=== PATIENT | male | born 1965 | race Caucasian/White ===

== ENCOUNTER 2017-10-02 12:05 | Day surgery (SDC) | payer OTHER ==
[2017-09-30 10:37] VITALS: BMI 32.8
--- NOTE | 2017-10-02 07:11 | P.GSHP ---
History of Present Illness H&P Date: 10/02/17 CHIEF COMPLAINT: Colon screen HISTORY OF PRESENT ILLNESS: The patient is a 52-year-old male who presents for colon screen. Lower endoscopy was offered for further evaluation and management. PAST MEDICAL HISTORY: Please see list. PAST SURGICAL HISTORY: Please see list. MEDICATIONS: Please see list. ALLERGIES: Please see list. SOCIAL HISTORY: No illicit drug use FAMILY HISTORY: No reports of Crohn disease or ulcerative colitis. REVIEW OF ORGAN SYSTEMS: CONSTITUTIONAL: No reports of fevers or chills. PHYSICAL EXAM: VITAL SIGNS: Stable GENERAL: Well-developed pleasant in no acute distress. HEENT: No scleral icterus. Extraocular movements grossly intact. Moist buccal mucosa. NECK: Supple without lymphadenopathy. CHEST: Unlabored respirations. Equal bilateral excursions. CARDIOVASCULAR: Regular rate and rhythm. Distal 2+ pulses. ABDOMEN: Soft, nontender, nondistended. MUSCULOSKELETAL: No clubbing, cyanosis, or edema. ASSESSMENT: 1. Colon screen. PLAN: 1. Recommend proceeding with a lower endoscopy Past Medical History Past Medical History: No Reported History History of Any Multi-Drug Resistant Organisms: None Reported Past Surgical History: Heart Catheterization With Stent, Hernia Repair Additional Past Surgical History / Comment(s): HEART CATH -2 STENTS 2000 AND 1 STENT 2003. VASECTOMY Past Anesthesia/Blood Transfusion Reactions: No Reported Reaction Date of Last Stent Placement:: 2000,2003 Smoking Status: Never smoker - Past Family History Mother Family Medical History: Cancer Medications and Allergies Home Medications Medication Instructions Recorded Confirmed Type No Known Home Medications [No 09/30/17 09/30/17 History Known Home Medications] Allergies Allergy/AdvReac Type Severity Reaction Status Date / Time No Known Allergies Allergy Verified 09/30/17 10:33
[~2017-10-02 12:05] MED LIST: LACTATED RINGERS 1,000 ML IV SCH
[2017-10-02 12:23] VITALS: RESP 16; TEMP 98.5
[2017-10-02] MEDS ORDERED: LIDOCAINE 1% 20 ML VIAL (10MG/ML) FOR IV START INTRADERMA ONE (12:27)
[2017-10-02] MEDS ORDERED: PROPOFOL 10 MG/ML 20 ML VIAL IV ONE (12:43)
--- NOTE | 2017-10-02 13:09 | P.PCN ---
Date of Procedure: 10/02/17 Description of Procedure: PREOPERATIVE DIAGNOSIS: Colonoscopy screening. POSTOPERATIVE DIAGNOSIS: Colonoscopy screening. Diverticulosis, scattered, severe at sigmoid Descending colon tubular adenoma OPERATION: Colonoscopy to the ileocecal valve and appendiceal orifice. Colonoscopy with snare polypectomy SURGEON: Marixa Keene MD. ANESTHESIA: MAC. INDICATIONS: The patient is a 52-year-old male who presents for his first colonoscopy screening. Benefits and risks were described and informed consent was obtained. DESCRIPTION OF PROCEDURE: The patient had undergone Gatorade, MiraLAX and Dulcolax prep. He had been brought into the operating room and laid in the left lateral decubitus position. After adequate intravenous sedation, the rectum was examined with 2% lidocaine jelly. No external hemorrhoids were encountered. The prostate was smooth and without abnormality. The rectal tone was within normal limits. No lesions were palpated in the rectal vault. An Olympus colonoscope was advanced until the ileocecal valve and appendiceal orifice were clearly viewed. The prep was fair with visualization of the mucosal folds. The scope was removed with visualization of each mucosal fold. Sigmoid diverticulosis was encountered. A tubular adenoma of 6 mm with snare polypectomy to completion at the descending colon, 30 cm from anal verge. No evidence of focal colitis was found. Retroflexion of the scope demonstrated no grade 1 internal hemorrhoids. The colon was desufflated. The patient had tolerated the procedure well. Withdrawal time was over 6 minutes. FINDINGS: No internal hemorrhoids. No external prolapsed hemorrhoids. No arteriovenous malformations. A tubular adenoma of 6 mm with snare polypectomy to completion at the descending colon, 30 cm from anal verge. No focal colitis. Severe sigmoid diverticulosis RECOMMENDATIONS: Repeat lower endoscopy in 5 years, 2022 Plan - Discharge Summary New Discharge Prescriptions: No Action No Known Home Medications [No Known Home Medications] Discharge Medication List No Known Home Medications [No Known Home Medications] 09/30/17 [History]
[2017-10-02 13:30] VITALS: BP 111/74; PULSE 78
== END 2017-10-02 13:40 | disposition home or self-care (01) ==
LOC: ORWHC2ENDO 12:05
PROVIDERS: ATTEND Surgery Plastic and Reconstructive Surgery
DX: Z12.11 Encounter for screening for malignant neoplasm of colon (principal); D12.4 Benign neoplasm of descending colon; K57.30 Diverticulosis of large intestine without perforation or abscess without bleeding; Z95.5 Presence of coronary angioplasty implant and graft
CPT/HCPCS: 88305; 45385; J2704

== ENCOUNTER → 2021-12-05 | Day surgery (SDC) | payer BC, OTHER ==
[2021-12-04 09:33] VITALS: BMI 31.6
[~2021-12-05] MED LIST changes: +IOPAMIDOL CONTRAST (ORAL USE) VIAL PO PRN; +LIDOCAINE 1% (10MG/ML) FOR IV START INTRADERMA ONE; +LIDOCAINE 2% INJ 20 MG/ML (2 ML VIAL) ONE; +PROPOFOL 10 MG/ML 20 ML VIAL IV ONE
--- NOTE | 2021-12-05 07:25 | P.GSHP ---
History of Present Illness H&P Date: 12/05/21 CHIEF COMPLAINT: Colon screen HISTORY OF PRESENT ILLNESS: The patient is a 56-year-old male who presents for colon screen. Lower endoscopy was offered for further evaluation and management. PAST MEDICAL HISTORY: Please see list. PAST SURGICAL HISTORY: Please see list. MEDICATIONS: Please see list. ALLERGIES: Please see list. SOCIAL HISTORY: No illicit drug use FAMILY HISTORY: No reports of Crohn disease or ulcerative colitis. REVIEW OF ORGAN SYSTEMS: CONSTITUTIONAL: No reports of fevers or chills. PHYSICAL EXAM: VITAL SIGNS: Stable GENERAL: Well-developed pleasant in no acute distress. HEENT: No scleral icterus. Extraocular movements grossly intact. Moist buccal mucosa. NECK: Supple without lymphadenopathy. CHEST: Unlabored respirations. Equal bilateral excursions. CARDIOVASCULAR: Regular rate and rhythm. Distal 2+ pulses. ABDOMEN: Soft, nontender, nondistended. MUSCULOSKELETAL: No clubbing, cyanosis, or edema. ASSESSMENT: 1. Colon screen. PLAN: 1. Recommend proceeding with a lower endoscopy Past Medical History Past Medical History: Hyperlipidemia, Hypertension, Myocardial Infarction ([place]) Additional Past Medical History / Comment(s): LOW IRON LEVELS Last Myocardial Infarction Date:: 2000 History of Any Multi-Drug Resistant Organisms: None Reported Past Surgical History: Heart Catheterization With Stent, Hernia Repair Additional Past Surgical History / Comment(s): HEART CATH -2 STENTS 2000 AND 1 STENT 2003. VASECTOMY. COLONOSCOPY Past Anesthesia/Blood Transfusion Reactions: No Reported Reaction Date of Last Stent Placement:: 2000,2003 Smoking Status: Never smoker - Past Family History Mother Family Medical History: Cancer Medications and Allergies Home Medications Medication Instructions Recorded Confirmed Type Atorvastatin [Lipitor] 80 mg PO DAILY 12/04/21 12/04/21 History Citalopram Hydrobromide 20 mg PO DAILY 12/04/21 12/04/21 History [Citalopram HBr] Metoprolol Succinate (ER) [Toprol 25 mg PO DAILY 12/04/21 12/04/21 History Xl] Allergies Allergy/AdvReac Type Severity Reaction Status Date / Time No Known Allergies Allergy Verified 12/04/21 09:27
[2021-12-05 09:05] VITALS: RESP 16; TEMP 97.3
[2021-12-05 10:42] LABS: Basophils % (A) 0 %; Eosinophils # (A) 0.2 k/uL (0-0.7); Eosinophils % (A) 3 %; HCT 40.2 % (39.0-53.0); HGB 12.5 gm/dL (13.0-17.5); Lymphocytes # (A) 0.8 k/uL (1.0-4.8); Lymphocytes % (A) 14 %; MCH 28.1 pg (25.0-35.0); MCV 90.5 fL (80.0-100.0); Mean Platelet Volume 7.6; Monocytes # (A) 0.3 k/uL (0-1.0); Monocytes % (A) 5 %; Neutrophils # (A) 4.1 k/uL (1.3-7.7); Neutrophils % (A) 76 %; Platelet Count 247 k/uL (150-450); RBC 4.44 m/uL (4.30-5.90); RDW 14.1 % (11.5-15.5); WBC 5.5 k/uL (3.8-10.6)
[2021-12-05 10:47] VITALS: BP 122/79; PULSE 71
[2021-12-05 11:02] LABS: ALT 13 U/L (4-49); AST 23 U/L (17-59); African American GFR (CKD) >90 (>60 ml/min/1.73 sqM); Albumin 3.3 g/dL (3.5-5.0); Alkaline Phosphatase 88 U/L (38-126); Anion Gap 5 mmol/L; Blood Urea Nitrogen 10 mg/dL (9-20); Calcium 8.6 mg/dL (8.4-10.2); Carbon Dioxide 25 mmol/L (22-30); Chloride 107 mmol/L (98-107); Glucose 94 mg/dL (74-99); Non-African American GFR(CKD) >90 (>60 ml/min/1.73 sqM); Potassium 4.5 mmol/L (3.5-5.1); Sodium 137 mmol/L (137-145); Total Bilirubin 0.4 mg/dL (0.2-1.3); Total Protein 5.8 g/dL (6.3-8.2)
--- NOTE | 2021-12-05 13:34 | CT ---
EXAMINATION TYPE: CT abdomen pelvis w con DATE OF EXAM: 12/05/2021 COMPARISON: None INDICATION: abdominal pain DLP: 1866.3 mGycm, Automated exposure control for dose reduction was used. CONTRAST: 65cc mL of Isovue 300. Study performed with Oral Contrast TECHNIQUE: Axial images were obtained from above the diaphragm to the pubic rami in the axial plane a t 5 mm thick sections. Reconstructed images are reviewed on the computer in the coronal plane. FINDINGS: Limited CT sections are obtained the lung bases. The lung bases are clear. CT ABDOMEN: Liver: Multiple rounded well-circumscribed hypodensities are scattered within the liver likely on the basis of hepatic cysts. Spleen: Normal Pancreas: Normal Adrenal glands: The adrenal glands are normal. Gallbladder: Gallstones present near the neck of the gallbladder. No pericholecystic fluid is evident . Kidneys: No masses are evident. No hydronephrosis is present. Cortical renal cyst is present in the mid lateral left kidney. Tiny cortical renal cysts superior pole left kidney medial upper pole rosita l cyst is present on the left. Aorta: Normal Inferior vena cava: Normal. CT PELVIS: There is diffuse thickened cecum with some mild inflammatory change adjacent. Infection and neoplasm should be considered. Additional workup is recommended. Diverticulosis without acute diverticulitis p resent within the sigmoid colon. There are loops of bowel which are incompletely distended or lack or al contrast limiting their evaluation. Appendix: Normal as visualized. Contrast within the appendix. Urinary bladder: Normal. Genitourinary structures: Prostate appears normal. Osseous structures: No suspicious lytic or sclerotic lesions. IMPRESSIONS: 1. Thickened cecum with some mild adjacent inflammatory change. Correlate for underlying neoplasm. I nfection should be considered within the differential. 2. Multiple benign-appearing hepatic cysts. 3. Cholelithiasis. 4. Small left renal cortical cysts.
[2021-12-05 15:00] LABS: Carcinoembryonic Antigen 2.9 ng/mL (0.0-4.9)
[2021-12-05 15:35] LABS: Alpha Fetoprotein, Tumor Mkr <1.82 ng/mL (0.00-7.90)
--- NOTE | 2021-12-11 15:42 | P.PCN ---
Date of Procedure: 12/05/21 Description of Procedure: PREOPERATIVE DIAGNOSIS: Personal history of colon polyps POSTOPERATIVE DIAGNOSIS: Tubular adenoma transverse colon Large cecal ulcerative neoplasm malignant potential Internal hemorrhoids, grade 2 Sigmoid diverticulosis/diverticulitis OPERATION: Colonoscopy to the ileocecal valve and appendiceal orifice, cecum Colonoscopy with hot snare polypectomy Colonoscopy with injection of Kathe ink, 5 mL, cecum SURGEON: Marixa Keene MD. ANESTHESIA: MAC. INDICATIONS: The patient is an 56-year-old male who presents personal history of colon polyps. Last colonoscopy 5 years. Benefits and risks were described and informed consent was obtained. DESCRIPTION OF PROCEDURE: The patient had undergone Sutab prep. The patient had been brought into the operating room and laid in the left lateral decubitus position. After adequate intravenous sedation, the rectum was examined with 2% lidocaine jelly. The prostate was unremarkable. External hemorrhoids were encountered. The rectal tone was within normal limits. No lesions were palpated in the rectal vault. An Olympus colonoscope was advanced until the cecum, ileocecal valve and appendiceal orifice were clearly viewed. The prep was excellent. Moderate to severe sigmoid diverticulosis with resolved diverticulitis was encountered at 30 cm from anal verge. Colonic polyps were found and removed. At the cecum/ascending colon, a large circumferential easily friable polyploid neoplastic process was identified involving over 5 cm in size. Multiple snare biopsies were obtained including injection of Kathe ink distal to the lesion. Retroflexion of the scope demonstrated grade 2 internal hemorrhoids without active bleeding or inflammation. The colon was desufflated. The patient had tolerated the procedure well. Withdrawal time was over 6 minutes. FINDINGS: Aronchick preparation quality scale 1 (1-5) Internal hemorrhoids, grade 2 External hemorrhoids, grade 2. No arteriovenous malformations. Sigmoid diverticulosis with resolved diverticulitis and edema, 30 cm from the anal verge At the cecum/ascending colon, a large unresectable by endoscopy circumferential easily friable polyploid neoplastic process was identified involving over 5 cm in size. -Multiple snare biopsies were obtained including injection of Kathe ink distal to the lesion. Removal of 1 polyps: - Snare polypectomy 50 cm from the anal verge, 8 mm flat villous adenoma polyp, descending colon/splenic flexure No focal colitis. RECOMMENDATIONS: 1. Unresectable cecal malignancy requiring surgical intervention 2. CBC, CMP, EKG for surgical intervention 3. Immediate CT of the abdomen and pelvis for malignancy metastatic Plan - Discharge Summary Discharge Rx Participant: No New Discharge Prescriptions: No Action Metoprolol Succinate (ER) [Toprol Xl] 25 mg PO DAILY Atorvastatin [Lipitor] 80 mg PO DAILY Citalopram Hydrobromide [Citalopram HBr] 20 mg PO DAILY Discharge Medication List Atorvastatin [Lipitor] 80 mg PO DAILY 12/04/21 [History] Citalopram Hydrobromide [Citalopram HBr] 20 mg PO DAILY 12/04/21 [History] Metoprolol Succinate (ER) [Toprol Xl] 25 mg PO DAILY 12/04/21 [History] Follow up Appointment(s)/Referral(s): Monroe Godfrey DO [STAFF PHYSICIAN] - 1 Week
== END | disposition home or self-care (01) ==
LOC: ORWHC2ENDO 08:27
PROVIDERS: ATTEND Surgery Plastic and Reconstructive Surgery
DX: Z12.11 Encounter for screening for malignant neoplasm of colon (principal); C18.0 Malignant neoplasm of cecum; D12.0 Benign neoplasm of cecum; D17.79 Benign lipomatous neoplasm of other sites; K57.30 Diverticulosis of large intestine without perforation or abscess without bleeding; K64.1 Second degree hemorrhoids; K64.4 Residual hemorrhoidal skin tags; Z86.010 Personal history of colon polyps; E78.5 Hyperlipidemia, unspecified; I10 Essential (primary) hypertension; F41.9 Anxiety disorder, unspecified; I25.2 Old myocardial infarction; E83.10 Disorder of iron metabolism, unspecified; Z95.5 Presence of coronary angioplasty implant and graft; Z98.52 Vasectomy status; Z98.890 Other specified postprocedural states; Z80.9 Family history of malignant neoplasm, unspecified; Z79.899 Other long term (current) drug therapy
CPT/HCPCS: 88305; 80053; 82378; 85025; 82105; 74177; 45385; 45381; J2704; Q9967; J2001

== ENCOUNTER → 2022-01-03 | Outpatient (CLI) | payer BC ==
[2022-01-03 18:12] LABS: HCT 40.3 % (39.6-50.0); HGB 12.8 g/dL (13.0-17.0); MCH 28.6 pg (27.0-32.0); MCHC 31.8 g/dL (32.0-37.0); MCV 90.2 fL (80.0-97.0); Mean Platelet Volume 10.7 fL (9.5-12.2); NRBC Per 100 WBC 0 /100 WBCS (0.0-0.0); Platelet Count 278 X 10*3/uL (140-440); RBC 4.47 X 10*6/uL (4.40-5.60); RDW 14.1 % (11.5-14.5); WBC 7.53 X 10*3/uL (4.50-10.00)
[2022-01-03 18:22] LABS: African American GFR (CKD) 103.4 (60.0-200.0); Albumin 3.7 g/dL (3.8-4.9); Albumin/Globulin Ratio 1.29 (1.60-3.17); Anion Gap 7.8 mmol/L (10.00-18.00); BUN/Creat Ratio 20.58 Ratio (12.00-20.00); Blood Urea Nitrogen 19.3 mg/dL (9.0-27.0); Calcium 9.1 mg/dL (8.7-10.3); Carbon Dioxide 26.2 mmol/L (20.0-27.5); Globulin 2.9 g/dL (1.6-3.3); Non-African American GFR(CKD) 89.2 (60.0-200.0); Potassium 4.8 mmol/L (3.5-5.5); Total Bilirubin 0.2 mg/dL (0.30-1.20); Total Protein 6.6 g/dL (6.2-8.2)
== END | disposition home or self-care (01) ==
LOC: LABPAT 13:12
PROVIDERS: ATTEND Surgery Plastic and Reconstructive Surgery
DX: Z01.818 Encounter for other preprocedural examination (principal)
CPT/HCPCS: 36415; 80053; 85027

== ENCOUNTER 2022-01-09 06:19 | Inpatient (IN) | payer BC, OTHER ==
[2022-01-07 09:20] VITALS: BMI 32.5
--- NOTE | 2022-01-09 04:17 | P.GSHP ---
History of Present Illness H&P Date: 01/09/22 CHIEF COMPLAINT: Colon cancer of the ascending colon HISTORY OF PRESENT ILLNESS: The patient is a 56 year old male who presented with anemia including recent colonoscopy 1 month ago with new finding of mass of the ascending colon. Pathology returned adenocarcinoma of the colon. Patient underwent extensive cardiac risk assessment, metastatic workup. Patient presents for surgical resection including endoscopic marking of his tumor. PAST MEDICAL HISTORY: See list and reviewed PAST SURGICAL HISTORY: See list and reviewed MEDICATIONS: See list and reviewed ALLERGIES: See list and reviewed SOCIAL HISTORY: See list and reviewed FAMILY HISTORY: See list and reviewed REVIEW OF ORGAN SYSTEMS: CONSTITUTIONAL: No fevers or chills. EYES: Denies any trouble with vision. Wears glasses. HEENT: No difficulties with hearing. No nosebleeds. No difficulty swallowing. RESPIRATORY: Denies pneumonia. Denies any troubles with breathing or dyspnea on exertion. CARDIOVASCULAR: Denies any chest pain, palpitations, or recent heart attacks. Had a recent cardiac risk assessment and stress test in the last 3 weeks. GASTROINTESTINAL: Denies fatty food intolerance. Denies change in bowel habits and gas bloat. GENITOURINARY: Denies any blood in urine or increased urinary frequency. NEUROLOGICAL: Denies any numbness or tingling along the distal extremities. No seizure disorders or headaches. MUSCULOSKELETAL: Has occassional back pain, stiffness or joint arthritis. SKIN: No current skin cancer. No rash. PSYCHIATRIC: Denies current depression or suicidal thoughts. ENDOCRINE: Denies current thyroid disorders. Denies any blood sugar glucose intolerance. HEME/LYMPHATIC: Denies any lumps and bumps around the neck. No recent deep venous thrombosis. ALLERGY/IMMUNOLOGY: No immunoglobulin therapy. No immune deficiencies. BREAST: Denies current breast lumps, pain or nipple discharge. PHYSICAL EXAM: VITALS: Reviewed CONSTITUTIONAL: Well developed and in no acute distress. EYES: Conjuctivae without sclera icterus. Extraocular movements grossly intact. HEAD, EARS, NOSE, THROAT: Moist buccal mucosa. Head is atraumatic, normocephalic. Hears conversational speech. No nasal drainage. NECK: Supple. No JV distention. No thyroidomegaly. RESPIRATORY: Non-labored respirations and equal bilateral excursions. No gross wheezes. CARDIOVASCULAR: Palpable 2+ radial pulses. ABDOMEN: Obese, nontender. LYMPH: No neck lymphadenopathy. MUSCULOSKELETAL: No clubbing cyanosis. SKIN: Warm and well perfused with good skin turgor. NEUROLOGIC: Cranial nerves II through XII grossly intact. No focal or lateralizing signs. PSYCH: Appropriate affect. Alert and oriented to person, place and time. Displays appropriate insight. CLINCAL LABS: Reviewed. Hemoglobin low 12.8. Tumor markers for colon cancer negative. IMAGING: Independently reviewed CT of the abdomen and pelvis demonstrates no lymphadenopathy. Abnormality and growth of the cecum identified extending into the ascending colon. This is my independent interpretation. RADIOLOGY: Report reviewed RECORDS: previous old records reviewed ASSESSMENT: 1. Ascending colon cancer PLAN: 1. Colonoscopy with endoscopic marking described for minimal invasive colon resection. 2. Robotic extended right hemicolectomy described. 3. Inpatient hospitalization over 2 nights described 4. Colon enhanced recovery protocol initiated 5. Patient's elevated risk for complications with obesity, hypertensive heart disease, and comorbidities. Past Medical History Past Medical History: Cancer, Hyperlipidemia, Hypertension, Myocardial Infarction ([place]) Additional Past Medical History / Comment(s): Current colon cancer. LOW IRON LEVELS. Last Myocardial Infarction Date:: 2000 History of Any Multi-Drug Resistant Organisms: None Reported Past Surgical History: Heart Catheterization With Stent, Hernia Repair Additional Past Surgical History / Comment(s): HEART CATH -2 STENTS 2000 AND 1 STENT 2003, VASECTOMY, COLONOSCOPY. Past Anesthesia/Blood Transfusion Reactions: No Reported Reaction Date of Last Stent Placement:: 2000,2003 Past Psychological History: Anxiety Smoking Status: Never smoker Past Alcohol Use History: Occasional Past Drug Use History: None Reported - Past Family History Mother Family Medical History: Cancer Medications and Allergies Home Medications Medication Instructions Recorded Confirmed Type Atorvastatin [Lipitor] 80 mg PO QAM 12/04/21 01/07/22 History Citalopram Hydrobromide 20 mg PO QAM 12/04/21 01/07/22 History [Citalopram HBr] Metoprolol Succinate (ER) [Toprol 25 mg PO QAM 12/04/21 01/07/22 History XL] Aspirin [Children's Aspirin] 81 mg PO DAILY 01/07/22 01/07/22 History Multivit with Calcium,Iron,Min 1 each PO DAILY 01/07/22 01/07/22 History [Women's Multivitamin] Allergies Allergy/AdvReac Type Severity Reaction Status Date / Time No Known Allergies Allergy Verified 01/07/22 09:22
[~2022-01-09 06:19] MED LIST changes: +Antibiotics per Pharmacy 1 EACH MISC MISCELLANE PRN; -IOPAMIDOL CONTRAST (ORAL USE) VIAL PO PRN; -LACTATED RINGERS 1,000 ML IV SCH; -LIDOCAINE 1% (10MG/ML) FOR IV START INTRADERMA ONE; +LIDOCAINE 1% (10MG/ML) FOR IV START INTRADERMA PRN; -LIDOCAINE 2% INJ 20 MG/ML (2 ML VIAL) ONE; -PROPOFOL 10 MG/ML 20 ML VIAL IV ONE
[2022-01-09] MEDS ORDERED: HEPARIN SODIUM,PORCINE/PF 5,000 UNIT/0.5 ML SYRINGE SQ PRN (07:00)
[2022-01-09] MEDS: LACTATED RINGERS 1,000 ML IV SCH (07:02)
[2022-01-09] MEDS ORDERED: PROPOFOL 10 MG/ML 20 ML VIAL IV ONE (07:05)
[2022-01-09] MEDS ORDERED: SODIUM CHLORIDE 0.9% 1,000 ML IV ONE (07:24)
--- NOTE | 2022-01-09 07:29 | P.PCN ---
Date of Procedure: 01/09/22 Description of Procedure: PREOPERATIVE DIAGNOSIS: Colon cancer of the cecum POSTOPERATIVE DIAGNOSIS: Colon cancer of the cecum Tubular adenoma hepatic flexure Moderate to severe sigmoid diverticulosis OPERATION: Colonoscopy to the ileocecal valve and appendiceal orifice, cecum Colonoscopy with hot snare polypectomy Colonoscopy with injection of Kathe ink, 5 mL, cecum SURGEON: Marixa Keene MD. ANESTHESIA: MAC. INDICATIONS: The patient is an 56-year-old male who presents a personal history of colon cancer. He presents here for endoscopic tattoo for surgical resection. Benefits and risks were described and informed consent was obtained. DESCRIPTION OF PROCEDURE: The patient had undergone Sutab prep. The patient had been brought into the operating room and laid in the left lateral decubitus position. After adequate intravenous sedation, the rectum was examined with 2% lidocaine jelly. The prostate was unremarkable. External hemorrhoids were encountered. The rectal tone was within normal limits. No lesions were palpated in the rectal vault. An Olympus colonoscope was advanced until the cecum, ileocecal valve and appendiceal orifice were clearly viewed. The prep was excellent. Sigmoid diverticulosis moderate to severe was encountered. Colonic polyps were found and removed. Large fungating easily friable cancer circumferential involving the entire cecum was found. Multiple tissues. Throughout the colon. No evidence of focal colitis was found. Retroflexion of the scope demonstrated grade 2 internal hemorrhoids without active bleeding or inflammation. The colon was desufflated. The patient had tolerated the procedure well. Withdrawal time was over 6 minutes. FINDINGS: Aronchick preparation quality scale 1 (1-5) Internal hemorrhoids, grade 2 External hemorrhoids, grade 2. No arteriovenous malformations. Sigmoid diverticulosis, moderate to severe Unresectable large fungating easily friable circumferential cancer involving the entire cecum, with injection of Kathe ink, 5 mL Removal of 2 polyps: - Snare polypectomy 30 cm from the anal verge, 9 mm tubulovillous adenoma polyp, descending colon - Snare polypectomy hepatic flexure, 5 mm flat villous adenoma polyp. No focal colitis. RECOMMENDATIONS: Recommend colon resection for adenocarcinoma of the cecum
[2022-01-09 07:37] LABS: Basophils # (A) 0.1 k/uL (0-0.2); Basophils % (A) 1 %; Eosinophils # (A) 0.3 k/uL (0-0.7); Eosinophils % (A) 4 %; HCT 41.9 % (39.0-53.0); HGB 13.4 gm/dL (13.0-17.5); Lymphocytes # (A) 0.9 k/uL (1.0-4.8); Lymphocytes % (A) 13 %; MCH 28.9 pg (25.0-35.0); MCV 90.4 fL (80.0-100.0); Mean Platelet Volume 7.8; Monocytes # (A) 0.4 k/uL (0-1.0); Monocytes % (A) 6 %; Neutrophils # (A) 5.5 k/uL (1.3-7.7); Neutrophils % (A) 75 %; Platelet Count 282 k/uL (150-450); RBC 4.64 m/uL (4.30-5.90); RDW 14.3 % (11.5-15.5); WBC 7.3 k/uL (3.8-10.6)
[2022-01-09 07:55] LABS: Albumin 3.9 g/dL (3.5-5.0); Chloride 108 mmol/L (98-107); Glucose 103 mg/dL (74-99); Potassium 4.6 mmol/L (3.5-5.1); Total Protein 6.7 g/dL (6.3-8.2)
[2022-01-09 07:56] LABS: ALT 15 U/L (4-49); AST 27 U/L (17-59); African American GFR (CKD) >90 (>60 ml/min/1.73 sqM); Alkaline Phosphatase 105 U/L (38-126); Anion Gap 9 mmol/L; Blood Urea Nitrogen 11 mg/dL (9-20); Calcium 8.9 mg/dL (8.4-10.2); Carbon Dioxide 22 mmol/L (22-30); Non-African American GFR(CKD) >90 (>60 ml/min/1.73 sqM); Sodium 139 mmol/L (137-145); Total Bilirubin 0.5 mg/dL (0.2-1.3)
[2022-01-09] MEDS ORDERED: METOPROLOL SUCCINATE (ER) 25 MG TAB.ER.24H PO STA (08:13)
--- NOTE | 2022-01-09 09:50 | P.PN ---
Progress Note - Text Progress Note Date: 01/09/22 Colonoscopy findings reviewed with patient and family including additional polyps resected. Perioperative recovery, surgical resection, post operative expectations discussed with questions answered. In patient admission for colon resection with labs pending for CBC and CMP. May have clear liquid diet with colon prep.
[2022-01-09 11:32] LABS: % Iron Saturation 13.23 (15.00-50.00); Ferritin 25.6 ng/mL (22.0-322.0); Iron 48 ug/dL (65-175); Total Iron Binding Capacity 361 ug/dL (228-460)
[2022-01-09] MEDS ORDERED: PEG 3350 (420 GM/BTL) + LYTES 4,000 ML BOTTLE PO ONE ×2 (12:00)
[2022-01-09] MEDS: NEOMYCIN 500 MG TAB PO SCH ×2 (13:04→13:56)
[2022-01-09] MEDS: metroNIDAZOLE 500 MG TAB PO SCH ×2 (13:04→13:56)
[2022-01-09] MEDS ORDERED: ONDANSETRON 4 MG/2 ML VIAL IVP PRN (13:28)
[2022-01-09] MEDS ORDERED: HYDROmorphone 1 MG/ML 1 ML SYRINGE IVP PRN (13:28)
[2022-01-09] MEDS: SODIUM CHLORIDE 0.9% 1,000 ML IV SCH ×2 (14:04→17:00)
[2022-01-09] MEDS ORDERED: TEMAZEPAM 15 MG CAP PO ONE (21:00)
--- NOTE | 2022-01-09 21:07 | P.PN ---
Progress Note - Text Progress Note Date: 01/09/22 Patient evaluated this evening. Tolerating bowel prep. No nausea. Pain control. Postoperative follow-up arranged. Perioperative questions addressed. Robotic right hemicolectomy discussed. Labs reviewed otherwise within normal limits. Repeat labs in the morning. Postoperative pain management including adjuncts of abdominal blocks and epidurals were reviewed.
[2022-01-10] MEDS: NEOMYCIN 500 MG TAB PO SCH (00:34)
[2022-01-10] MEDS: metroNIDAZOLE 500 MG TAB PO SCH (00:34)
[2022-01-10] MEDS: SODIUM CHLORIDE 0.9% 1,000 ML IV SCH ×3 (00:34→17:20)
[2022-01-10] MEDS ORDERED: HEPARIN SODIUM,PORCINE/PF 5,000 UNIT/0.5 ML SYRINGE SQ PRN (05:00)
[2022-01-10] MEDS ORDERED: metroNIDAZOLE-NS PMX 500 MG in SALINE 1 100ML.BAG IVPB ONE (06:00)
[2022-01-10] MEDS ORDERED: IV FLUID CONTINUATION 1,000 ML IV ONE (06:32)
[2022-01-10 06:35] LABS: Basophils % (A) 1 %; Eosinophils # (A) 0.3 k/uL (0-0.7); Eosinophils % (A) 5 %; HCT 41.1 % (39.0-53.0); HGB 13.1 gm/dL (13.0-17.5); Lymphocytes % (A) 17 %; MCH 28.9 pg (25.0-35.0); MCHC 31.8 g/dL (31.0-37.0); MCV 90.7 fL (80.0-100.0); Mean Platelet Volume 7.7; Monocytes # (A) 0.4 k/uL (0-1.0); Monocytes % (A) 7 %; Neutrophils # (A) 4.1 k/uL (1.3-7.7); Neutrophils % (A) 69 %; Platelet Count 256 k/uL (150-450); RBC 4.53 m/uL (4.30-5.90); RDW 14.2 % (11.5-15.5); WBC 5.9 k/uL (3.8-10.6)
[2022-01-10] MEDS ORDERED: DEXAMETHASONE SOD PHOSPHATE 4 MG/ML 1 ML VIAL IVP ONE (06:51)
[2022-01-10] MEDS ORDERED: ONDANSETRON 4 MG/2 ML VIAL IVP ONE (06:51)
[2022-01-10 06:52] LABS: African American GFR (CKD) >90 (>60 ml/min/1.73 sqM); Anion Gap 10 mmol/L; Blood Urea Nitrogen 6 mg/dL (9-20); Calcium 8.4 mg/dL (8.4-10.2); Carbon Dioxide 20 mmol/L (22-30); Chloride 110 mmol/L (98-107); Glucose 107 mg/dL (74-99); Non-African American GFR(CKD) >90 (>60 ml/min/1.73 sqM); Potassium 4.1 mmol/L (3.5-5.1); Sodium 140 mmol/L (137-145)
[2022-01-10] MEDS ORDERED: ALVIMOPAN 12 MG CAPSULE PO PRN (07:00)
[2022-01-10] MEDS ORDERED: MELOXICAM 7.5 MG TAB PO PRN (07:00)
[2022-01-10] MEDS ORDERED: ACETAMINOPHEN TAB 500 MG TAB PO PRN (07:00)
[2022-01-10] MEDS ORDERED: MIDAZOLAM 2 MG/2 ML VIAL IVP ONE (07:16)
[2022-01-10] MEDS ORDERED: fentaNYL (PF) 50 MCG/ML 2 ML AMP IVP ONE (07:18)
[2022-01-10] MEDS ORDERED: HEPARIN SODIUM,PORCINE 5,000 UNIT/ML 1 ML VIAL SQ ONE (07:35)
[2022-01-10] MEDS ORDERED: NEOSTIGMINE 1 MG/ML 10 ML VIAL ONE (07:38)
[2022-01-10] MEDS ORDERED: ROPIVACAINE 5 MG/ML 30 ML VIAL ONE (07:38)
[2022-01-10] MEDS ORDERED: ROCURONIUM 10 MG/ML (5 ML VIAL) IV ONE (07:38)
[2022-01-10] MEDS ORDERED: DEXAMETHASONE SOD PHOSPHATE 4 MG/ML 1 ML VIAL ONE (07:38)
[2022-01-10] MEDS ORDERED: MIDAZOLAM 2 MG/2 ML VIAL ONE (07:38)
[2022-01-10] MEDS ORDERED: ONDANSETRON 4 MG/2 ML VIAL ONE (07:38)
[2022-01-10] MEDS ORDERED: HYDROmorphone (PF) 1 MG/ML ONE (07:38)
[2022-01-10] MEDS ORDERED: GLYCOPYRROLATE 0.2 MG/ML 2 ML VIAL ONE (07:38)
[2022-01-10] MEDS ORDERED: fentaNYL (PF) 50 MCG/ML 2 ML AMP ONE (07:38)
[2022-01-10] MEDS ORDERED: LIDOCAINE 2% INJ 20 MG/ML (2 ML VIAL) ONE (07:38)
[2022-01-10] MEDS ORDERED: PROPOFOL 10 MG/ML 20 ML VIAL IV ONE (07:38)
[2022-01-10] MEDS: METOPROLOL SUCCINATE (ER) 25 MG TAB.ER.24H PO SCH (07:41)
--- NOTE | 2022-01-10 07:41 | P.ANPRN ---
Procedure Note - Anesthesia - Nerve Block Performed Bilateral Erector Spinae Single Time Out Performed: Yes Date of Procedure: 01/10/22 Procedure Start Time: :13 Procedure Stop Time: :24 Location of Patient: PreOp Indication: Acute Post-Operative Pain, Requested by Surgeon Sedation Type: Sedate with meaningful contact maintained Preparation: Sterile Prep, Sterile Dressing Position: Prone Catheter: None Needle Types: Facet Needle Gauge: 20 Ultrasound used to visualize needle placement: Yes Ultrasound used to observe medication spread: Yes Injectate: Other (see comment) (0.25 % ropivacaine 20 ml + decadron 2 mg per side) Blood Aspirated: No Pain Paresthesia on Injection Noted: No Resistance on Injection: Normal Image Stored and Saved: Yes Events: Uneventful and Well Tolerated
[2022-01-10] MEDS ORDERED: SODIUM CHLORIDE 0.9% 100 ML with ceFAZolin 2,000 MG IV ONE ×2 (07:55)
[2022-01-10] MEDS ORDERED: SODIUM CHLORIDE 0.9% 50 ML with metroNIDAZOLE-NS PMX 500 MG IV ONE ×2 (08:00)
[2022-01-10] MEDS ORDERED: BUPIVACAIN-EPI 0.25%-1:200,000 30 ML VIAL SQ ONE (08:13)
[2022-01-10] MEDS ORDERED: CITALOPRAM HYDROBROMIDE 20 MG TAB PO SCH (09:00)
[2022-01-10] MEDS ORDERED: LACTATED RINGERS 1,000 ML IV ONE ×4 (10:20→15:00)
[2022-01-10] MEDS ORDERED: BENZOCAINE/MENTHOL LOZENG 1 EACH LOZENGE MUCOUS MEM PRN (15:00)
[2022-01-10] MEDS: LACTATED RINGERS 1,000 ML IV SCH (15:58)
[2022-01-10] MEDS: ASPIRIN 81 MG PO SCH (16:00)
--- NOTE | 2022-01-10 17:25 | P.OP ---
Date of Procedure: 01/10/22 Description of Procedure: SURGEON: HANNY IZQUIERDO MD Preoperative Diagnosis: 1. Ascending colon cancer 2. Hypertensive heart disease 3. Obesity due to excess calories, BMI 32.0 4. Depressive disorder 5. Hyperlipidemia Postoperative Diagnosis: 1. Ascending colon cancer 2. Hypertensive heart disease 3. Obesity due to excess calories, BMI 32.0 4. Depressive disorder 5. Hyperlipidemia 6. Peritoneal adhesions, abnormal 7. Chronic cholecystitis Procedure(s) Performed: 1. Robotic-assisted da Guerrero XI laparoscopic extensive lysis of adhesions over 2 hours 2. Robot-assisted daVinci Xi laparoscopic right hemicolectomy Anesthesia: GETA, local, regional block Estimated Blood Loss (ml): 100 Condition: stable SPECIMENS REMOVED: terminal ileum and extended right colon en bloc, anastomosis COMPLICATIONS: None. Disposition: floor Operative Findings: 1. Tattoo identified along the mid ascending colon. 2. More than 6 cm border obtained from tattoo dye for resection 3. No peritoneal metastases identified 4. Erosion of ascending colon neoplasm through serosa 5. Severe retroperitoneal adhesion involving transverse mesocolon anterior posterior omentum leaflets causing encasement of the colon and additional dissection over 2 hours 6. Severe rertoperitoneal adhesions involving the ascending colon and pelvis requiring additional dissection 7. The retroperitoneal adhesions created foreshortened mesentery of the ileum and jejunum. 8. No liver metastases identified on the serosa 9. Dense adhesions along the gallbladder consistent with chronic cholecystitis INDICATIONS: The patient is a 56-year-old male who presents with ascending colon cancer. Surgical intervention with colon resection was described in detail. Benefits and risks, including infection, open surgery possibility for additional surgery was discussed at length. Informed consent was obtained. All questions of the patient and family were answered. DESCRIPTION: Earlier the patient had undergone a bowel prep using the enhanced colon recovery program. He had an abdominal wall block. The patient was transferred to the operating room and placed in supine position. After general anesthetic, a max catheter was placed. The abdomen was then prepped and draped in standard sterile fashion as Ioban was placed along the abdomen to minimize any contamination of skin floor. After a timeout protocol was performed, attention was then brought to the left upper quadrant whereby a 0 degree 5 mm laparoscopic trocar entry was performed. The abdominal cavity was entered and insufflated to 15 mmHg pressure, which was tolerated well. Diagnostic laparoscopy demonstrated no injury to bowel, viscera or mesentery. The liver was unremarkable for serosal metastatic lesions. Next trochars were placed along the left lateral abdomen. An robotic 8-mm trocar to the left lower abdomen. Two 12 mm ports were placed along the left mid and upper quadrant. Another 8-mm port along the left lower quadrant. Ports were placed 9 cm apart from each other including 15-20 cm away from the target anatomy of the right pelvis. The 5-mm port was exchanged for a 12 mm robotic port. The patient was then placed in right side up 7 and Trendelenburg 7. The robotic da Guerrero XI system was primed and docked onto the left side of the patient. Using atraumatic graspers and vessel sealer, the robotic system was docked and primed as described. Instruments were interchanged by the accounts receivable assistant including scissors, needle flatbed driver, robotic stapler and vessel sealer. Next, attention was brought to identify the cecum. A stay suture using 3-0 silk was placed along the anterior serosa of the along the terminal ileum. The terminal ileum and ascending colon mesentery was mobilized using a vessel sealer whereby the colon was marked and tagged. Tattoo was identified along the mid ascending colon. The colon was prepared for resection along the along the terminal ileum. Using robot stapler 60 mm white load, the distal ileum was divided 8 centimeters proximal to the ileocecal valve. Next attention was brought to the transverse colon. Abnormal dense adhesions involving the anterior and posterior leaflets of the transverse omentum mesocolon encased the entire transverse colon and adherent to the retrop eritoneum adding complexity to the case. Extensive lysis of adhesions 2 hours was performed to free the transverse mesocolon from its retroperitoneal attachments using vessel sealer including blunt dissection. The transverse colon was divided using 60 mm blue loads at the proximal transverse colon. Dense adhesions of omentum and the gallbladder was also found and dissected free using vessel sealer. No metastatic lesions were found along the surface of the liver. The mesentery of the ascending colon was mobilized towards the midline using a vessel sealer. Serosal invasion of the ascending colon tumor was found at the anterior surface of the cecum. At the right pelvic wall, no extension into the muscle was found of the tumor. To obtain clear margins, the peritoneum and fat of the right pelvic wall was resected in total with the specimen. The appendix was densely adherent to the right pelvic wall and retroperitoneum including at the ileocecal valve. Similarly the dense retroperitoneal adhesions were resected using vessel sealer. The right colon was mobilized from the proximal transverse colon torwards the appendix and prepared for resection. The rest of the colon mesentery was mobilized using vessel sealer including using blunt dissection. The vascular pedicle of the ileocolic artery was controlled using vessel sealer. The retroperitoneal adhesions created foreshortened mesentery of the ileum and jejunum. The proximal transverse colon and distal ileum was brought in a side to side antiperistaltic anastomotic fashion after placing interrupted sutures along the proposed miguel-lumen using 3-0 silk. A colotomy and enterotomy was prepared along both limbs along the antimesenteric border. Next, 60 mm blue stapler loads were fired to create the miguel-lumen. The miguel-lumen was reapproximated using 3-0 silk followed by 60 mm blue load for closure of the enterostomy. A stay suture was placed along the seat the anastomosis. All needles and sponges were removed from the abdominal cavity. The robot was undocked. I re-scrubbed into the case. Via the 12 mm port of the left upper quadrant, the right colon was removed after widening the skin incision to 6-cm using 15-mm Endo Catch bag. No spillage occurred upon removal of the specimen. No irrigation was used during the case to decrease risk of contamination and seeding. The fascial defect was oversewn using 0 Vicryl and Agustín Balbuena. Next all pneumoperitoneum was evacuated from the abdominal cavity. The 8-mm trocar sites were reapproximated using 4-0 Monocryl in an interrupted subcuticular fashion including specimen extraction site. Local anesthetic was infiltrated to all wounds for postop analgesia. All incisions were also cleansed with diluted hydrogen peroxide. Liquid was applied to the rest of the skin incisions. Optifoam was placed over the left upper quadrant incision. An abdominal binder was placed. The patient had tolerated the procedure well. The patient was extubated successf ully. Intraoperative photos were reviewed with the patient's family. The patient was transferred to the postanesthesia care unit in stable condition.
[2022-01-10] MEDS ORDERED: SODIUM CHLORIDE 0.9% 2,000 ML IV ONE (18:21)
[2022-01-10] MEDS ORDERED: PROCHLORPERAZINE INJ 10 MG/2 ML VIAL IVP PRN (18:29)
[2022-01-10] MEDS ORDERED: metroNIDAZOLE-NS PMX 500 MG in SALINE 1 100ML.BAG IVPB SCH (18:45)
[2022-01-10] MEDS ORDERED: TAMSULOSIN 0.4 MG CAP.ER.24H PO ONE (19:00)
[2022-01-10] MEDS: ACETAMINOPHEN TAB 500 MG TAB PO SCH (20:47)
[2022-01-10] MEDS: HEPARIN SODIUM,PORCINE/PF 5,000 UNIT/0.5 ML SYRINGE SQ SCH (20:47)
[2022-01-10] MEDS: GABAPENTIN 300 MG CAP PO SCH (20:49)
[2022-01-10] MEDS: ALVIMOPAN 12 MG CAPSULE PO SCH (20:49)
--- NOTE | 2022-01-10 22:30 | P.PN ---
Progress Note - Text Progress Note Date: 01/10/22 Patient is resting comfortably. His is at bedside. His pain is well controlled with an abdominal block. Patient removed his SCDs, "I was hot." Intraoperative findings reviewed partial colectomy performed. Very large 10 cm tumor resected and found densely adherent to the retroperitoneum of the right pelvis. Attempts for clear oncologic margins performed. No liver metastases found. Tumor extends through wall of colon with higher risk for lymphovascular invasion that may require future chemotherapy reviewed. Findings of hernia and gallbladder scarring described. Perioperative recovery reviewed including blood in first bowel movement expected. Bowel function usually resumes in 3 to 5 days. Full liquid diet to low fiber diet described without seeds. Time of recovery at least for 4 weeks through February 09. Patient inquired for oncology consultation. Pathology report may take up to 2 weeks for results. Discharge medications reviewed including non-narcotic pain management with Tylenol as ibuprofen increases risks for bleeding. DVT prophylaxis also reviewed with ambulation and leg exercises. Images from surgery sent to his . On exam, urine output 30 to 60 mL/hr slightly dark in max. Abdominal binder present. All questions addressed. Family previously notified prior to surgery that I will be out of town until return Jan 20. Patient also notified that office will be closed next week. Follow-up with PCP described, otherwise return to ER for acute events. Surgical coverage with Dr. Phillips reviewed.
[2022-01-10] MEDS: ceFAZolin 3 GM in SODIUM CHLORIDE 0.9% 100 ML IVPB SCH (22:37)
[2022-01-10] MEDS: SIMETHICONE 40 MG/0.6 ML DROPS 2,000 MG/30 ML BOTTLE PO SCH ×2 (22:37→22:46)
[2022-01-11] MEDS: SODIUM CHLORIDE 0.9% 1,000 ML IV SCH ×4 (03:17→22:56)
[2022-01-11] MEDS: ceFAZolin 3 GM in SODIUM CHLORIDE 0.9% 100 ML IVPB SCH ×2 (03:42→09:29)
[2022-01-11] MEDS: metroNIDAZOLE-NS PMX 500 MG in SALINE 1 100ML.BAG IVPB SCH ×5 (03:45→16:21)
[2022-01-11] MEDS: ACETAMINOPHEN TAB 500 MG TAB PO SCH ×4 (03:46→15:14)
[2022-01-11] MEDS: LACTATED RINGERS 1,000 ML IV SCH (06:35)
[2022-01-11] MEDS: METOPROLOL SUCCINATE (ER) 25 MG TAB.ER.24H PO SCH (09:30)
[2022-01-11] MEDS: HEPARIN SODIUM,PORCINE/PF 5,000 UNIT/0.5 ML SYRINGE SQ SCH ×2 (09:30→20:23)
[2022-01-11] MEDS: TAMSULOSIN 0.4 MG CAP.ER.24H PO SCH (09:30)
[2022-01-11] MEDS: GABAPENTIN 300 MG CAP PO SCH ×3 (09:30→20:23)
[2022-01-11] MEDS: ASPIRIN 81 MG PO SCH (09:30)
[2022-01-11] MEDS: SIMETHICONE 40 MG/0.6 ML DROPS 2,000 MG/30 ML BOTTLE PO SCH ×4 (09:30→20:24)
[2022-01-11] MEDS: ALVIMOPAN 12 MG CAPSULE PO SCH ×2 (09:33→20:23)
--- NOTE | 2022-01-11 11:23 | P.PN ---
Subjective Progress Note Date: 01/11/22 Principal diagnosis: Colon cancer Patient doing well today after robotic right colectomy yesterday. Complaining of mild discomfort. Some bloating. No nausea or vomiting. No bowel function yet. Labs looked good. Tolerating clears. Objective - Vital Signs Vital signs: Vital Signs Temp 97.9 F 01/11/22 08:00 Pulse 65 01/11/22 08:00 Resp 16 01/11/22 08:00 BP 102/60 01/11/22 08:00 Pulse Ox 97 01/11/22 08:00 FiO2 Intake & Output 01/10/22 01/11/22 01/11/22 18:59 06:59 18:59 Intake Total 3250 Output Total 430 150 500 Balance 2820 -150 -500 Intake: IV 3250 Output: Urine 330 150 500 Uretheral (Vargas) 150 Estimated Blood Loss 100 Other: Voiding Method Indwelling Catheter - Exam Abdomen: Soft, mild tenderness, incisions clean and dry - Labs CBC & Chem 7: 01/10/22 05:57 01/10/22 05:57 Assessment and Plan (1) Cancer of cecum Narrative/Plan: 56-year-old male doing well after colectomy yesterday. Advance diet to full liquids. Ambulate. Possible discharge tomorrow. Current Visit: Yes Status: Acute Code(s): C18.0 - MALIGNANT NEOPLASM OF CECUM SNOMED Code(s): 178261444
[2022-01-11 11:41] LABS: Basophils # (A) 0.01 X 10*3/uL (0.00-0.10); Basophils % (A) 0.1 %; Eosinophils # (A) 0.02 X 10*3/uL (0.04-0.35); Eosinophils % (A) 0.2 %; HCT 33.7 % (39.6-50.0); HGB 10.7 g/dL (13.0-17.0); Immature Grans, Automated 0.4 %; Lymphocytes # (A) 1.05 X 10*3/uL (0.90-5.00); Lymphocytes % (A) 10.5 %; MCH 29.2 pg (27.0-32.0); MCHC 31.8 g/dL (32.0-37.0); MCV 92.1 fL (80.0-97.0); Mean Platelet Volume 10.9 fL (9.5-12.2); Monocytes # (A) 0.54 X 10*3/uL (0.20-1.00); Monocytes % (A) 5.4 %; NRBC Per 100 WBC 0 /100 WBCS (0.0-0.0); Neutrophils # (A) 8.38 X 10*3/uL (1.80-7.70); Neutrophils % (A) 83.4 %; Platelet Count 190 X 10*3/uL (140-440); RBC 3.66 X 10*6/uL (4.40-5.60); RDW 14.6 % (11.5-14.5); WBC 10.04 X 10*3/uL (4.50-10.00)
[2022-01-11] MEDS: SODIUM FERRIC GLUCONAT-SUCROSE 125 MG in SODIUM CHLORIDE 0.9% 100 ML IVPB SCH ×2 (11:56→12:36)
[2022-01-11 12:04] LABS: Alpha Fetoprotein, Tumor Mkr <1.82 ng/mL (0.00-7.90)
--- NOTE | 2022-01-11 13:15 | P.CONS ---
History of Present Illness - Reason for Consult Perioperative hypotension - History of Present Illness Patient is a pleasant 56-year-old male admitted for laparoscopic right hemicolectomy and extensive additional lysis. Patient has an worsening: Cancer which was recently diagnosed after he was evaluated for anemia. Patient had the end-to-end anastomosis clinically doing well didn't pass gas yet walking in the hallways pain is well-controlled. REVIEW OF SYSTEMS: CONSTITUTIONAL: No fever, no malaise, no fatigue. HEENT: No recent visual problems or hearing problems. Denied any sore throat. CARDIOVASCULAR: No chest pain, orthopnea, PND, no palpitations, no syncope. PULMONARY: No shortness of breath, no cough, no hemoptysis. GASTROINTESTINAL: No diarrhea, no nausea, no vomiting, no abdominal pain. NEUROLOGICAL: No headaches, no weakness, no numbness. HEMATOLOGICAL: Denies any bleeding or petechiae. GENITOURINARY: Denies any burning micturition, frequency, or urgency. MUSCULOSKELETAL/RHEUMATOLOGICAL: Denies any joint pain, swelling, or any muscle pain. ENDOCRINE: Denies any polyuria or polydipsia. The rest of the 14-point review of systems is negative. PHYSICAL EXAMINATION: GENERAL: The patient is alert and oriented x3, not in any acute distress. Well developed, well nourished. HEENT: Pupils are round and equally reacting to light. EOMI. No scleral icterus. No conjunctival pallor. Normocephalic, atraumatic. No pharyngeal erythema. No thyromegaly. CARDIOVASCULAR: S1 and S2 present. No murmurs, rubs, or gallops. PULMONARY: Chest is clear to auscultation, no wheezing or crackles. ABDOMEN: Soft, postsurgically packed, normoactive bowel sounds. No palpable organomegaly. MUSCULOSKELETAL: No joint swelling or deformity. EXTREMITIES: No cyanosis, clubbing, or pedal edema. NEUROLOGICAL: Gross neurological examination did not reveal any focal deficits. SKIN: No rashes. Assessment and plan Mild perioperative hypotension which is expected to improve patient is on metoprolol which is being continued which is appropriate. Patient is not symptomatic at this time -Colon cancer status post hemicolectomy on this hospitalization awaiting pathology reports -Hypertension -Hyperlipidemia -Coronary artery disease DVT prophylaxis: As per primary service Past Medical History Past Medical History: Cancer, Hyperlipidemia, Hypertension, Myocardial Infarction ([place]) Additional Past Medical History / Comment(s): Current colon cancer. LOW IRON LEVELS. Last Myocardial Infarction Date:: 2000 History of Any Multi-Drug Resistant Organisms: None Reported Past Surgical History: Heart Catheterization With Stent, Hernia Repair Additional Past Surgical History / Comment(s): HEART CATH -2 STENTS 2000 AND 1 STENT 2003, VASECTOMY, COLONOSCOPY. Past Anesthesia/Blood Transfusion Reactions: No Reported Reaction Date of Last Stent Placement:: 2000,2003 Past Psychological History: Anxiety Smoking Status: Never smoker Past Alcohol Use History: Occasional Past Drug Use History: None Reported - Past Family History Mother Family Medical History: Cancer Medications and Allergies Home Medications Medication Instructions Recorded Confirmed Type Atorvastatin [Lipitor] 80 mg PO QAM 12/04/21 01/07/22 History Citalopram Hydrobromide 20 mg PO QAM 12/04/21 01/07/22 History [Citalopram HBr] Metoprolol Succinate (ER) [Toprol 25 mg PO QAM 12/04/21 01/07/22 History XL] Aspirin [Children's Aspirin] 81 mg PO DAILY 01/07/22 01/07/22 History Multivit with Calcium,Iron,Min 1 each PO DAILY 01/07/22 01/07/22 History [Women's Multivitamin] Acetaminophen Tab [Tylenol Tab] 1,000 mg PO Q6HR PRN #30 tablet 01/10/22 Rx Simethicone [Gas-X] 125 mg PO AC-TID PRN #20 capsule 01/10/22 Rx Allergies Allergy/AdvReac Type Severity Reaction Status Date / Time No Known Allergies Allergy Verified 01/09/22 06:39 Physical Exam Vitals: Vital Signs Temp Pulse Pulse Resp BP Pulse Ox 01/11/22 08:00 97.9 F 65 16 102/60 97 01/11/22 02:50 98.0 F 69 16 93/49 97 01/10/22 19:18 97.5 F L 71 18 103/66 96 01/10/22 17:30 78 106/64 96 01/10/22 17:15 74 105/68 92 L 01/10/22 16:59 75 105/69 89 L 01/10/22 16:44 69 110/70 95 01/10/22 16:29 77 107/70 92 L 01/10/22 16:14 66 99/65 96 01/10/22 16:00 97.5 F L 70 16 105/71 96 01/10/22 15:59 71 105/71 93 L 01/10/22 15:52 97.5 F L 73 18 115/74 93 L 01/10/22 15:44 68 107/72 92 L 01/10/22 15:20 78 16 101/55 98 01/10/22 15:05 75 16 102/56 99 01/10/22 14:50 75 16 105/57 95 01/10/22 14:35 67 16 104/61 98 01/10/22 14:20 77 18 102/66 97 01/10/22 14:05 73 16 120/77 97 01/10/22 13:50 96.9 F L 86 16 123/78 96 Intake and Output 01/10/22 01/11/22 01/11/22 22:59 06:59 14:59 Intake Total 500 Output Total 30 150 500 Balance 470 -150 -500 Intake: IV 500 Output: Urine 30 150 500 Uretheral (Vargas) 150 Other: Voiding Method Indwelling Catheter Results CBC & Chem 7: 01/11/22 07:59 01/10/22 05:57 Labs: Abnormal Lab Results - Last 24 Hours (Table) 01/11/22 Range/Units 07:59 WBC 10.04 H (4.50-10.00) X 10*3/uL RBC 3.66 L (4.40-5.60) X 10*6/uL Hgb 10.7 L (13.0-17.0) g/dL Hct 33.7 L (39.6-50.0) % MCHC 31.8 L (32.0-37.0) g/dL RDW 14.6 H (11.5-14.5) % Neutrophils # 8.38 H (1.80-7.70) X 10*3/uL Eosinophils # 0.02 L (0.04-0.35) X 10*3/uL
--- NOTE | 2022-01-11 21:00 | P.CONS ---
History of Present Illness - Reason for Consult Consult date: 01/11/22 Colon ca - History of Present Illness The patient is a 56-year-old white male with overall well controlled medical problems at baseline. He was found to have mild anemia with hemoglobin in the 12 range, which is a new finding, on routine follow up with his PCP. At that time he also noted some change in bowel habits with no bowel movement for the past 2-3 months. He therefore had a colonoscopy in late 11/29 , which revealed a large polypoid mass in the cecum, that could not be resected endoscopically. Biopsy was positive for grade 2 adenocarcinoma arising in an adenoma with background of high-grade dysplasia. Patient had CT of the abdomen and pelvis on 12/05/21, showing no evidence of metastatic disease. Benign-appearing hepatic cysts were noted. Patient was admitted for elective resection, which was performed on 01/10/22. He had an endoscopic robotic-assisted. Operative note was reviewed. There did not appear to be any obvious metastatic disease. However there was possibility of serosal involvement anterior to the cecum. Patient also required extensive lysis of adhesions. Consult was therefore placed further evaluation and recommendations. He denied any previous history of malignancy personally. He feels that his uncle may have had colon cancer. He had a negative colonoscopy about 4 years ago. No history of any blood in the stool or loss of weight. Review of Systems Constitutional: Denies chills, Denies fever Eyes: denies blurred vision, denies pain Ears: deny: decreased hearing, ear discharge, earache, tinnitus Ears, nose, mouth and throat: Denies headache, Denies sore throat Cardiovascular: Denies chest pain, Denies shortness of breath Respiratory: Denies cough Gastrointestinal: Reports as per HPI Genitourinary: Reports as per HPI Musculoskeletal: Denies myalgias Integumentary: Denies pruritus, Denies rash Neurological: Denies numbness, Denies weakness Psychiatric: Denies anxiety, Denies depression Endocrine: Denies fatigue, Denies weight change Hematologic/Lymphatic: Reports as per HPI Past Medical History Past Medical History: Cancer, Hyperlipidemia, Hypertension, Myocardial Infarction ([place]) Additional Past Medical History / Comment(s): Current colon cancer. LOW IRON LEVELS. Last Myocardial Infarction Date:: 2000 History of Any Multi-Drug Resistant Organisms: None Reported Past Surgical History: Heart Catheterization With Stent, Hernia Repair Additional Past Surgical History / Comment(s): HEART CATH -2 STENTS 2000 AND 1 STENT 2003, VASECTOMY, COLONOSCOPY. Past Anesthesia/Blood Transfusion Reactions: No Reported Reaction Date of Last Stent Placement:: 2000,2003 Past Psychological History: Anxiety Smoking Status: Never smoker Past Alcohol Use History: Occasional Past Drug Use History: None Reported - Past Family History Mother Family Medical History: Cancer Medications and Allergies Home Medications Medication Instructions Recorded Confirmed Type Atorvastatin [Lipitor] 80 mg PO QAM 12/04/21 01/07/22 History Citalopram Hydrobromide 20 mg PO QAM 12/04/21 01/07/22 History [Citalopram HBr] Metoprolol Succinate (ER) [Toprol 25 mg PO QAM 12/04/21 01/07/22 History XL] Aspirin [Children's Aspirin] 81 mg PO DAILY 01/07/22 01/07/22 History Multivit with Calcium,Iron,Min 1 each PO DAILY 01/07/22 01/07/22 History [Women's Multivitamin] Acetaminophen Tab [Tylenol Tab] 1,000 mg PO Q6HR PRN #30 tablet 01/10/22 Rx Simethicone [Gas-X] 125 mg PO AC-TID PRN #20 capsule 01/10/22 Rx Allergies Allergy/AdvReac Type Severity Reaction Status Date / Time No Known Allergies Allergy Verified 01/09/22 06:39 Physical Exam Vitals: Vital Signs Temp Pulse Pulse Resp BP Pulse Ox 01/11/22 02:50 98.0 F 69 16 93/49 97 01/10/22 19:18 97.5 F L 71 18 103/66 96 01/10/22 17:30 78 106/64 96 01/10/22 17:15 74 105/68 92 L 01/10/22 16:59 75 105/69 89 L 01/10/22 16:44 69 110/70 95 01/10/22 16:29 77 107/70 92 L 01/10/22 16:14 66 99/65 96 01/10/22 16:00 97.5 F L 70 16 105/71 96 01/10/22 15:59 71 105/71 93 L 01/10/22 15:52 97.5 F L 73 18 115/74 93 L 01/10/22 15:44 68 107/72 92 L 01/10/22 15:20 78 16 101/55 98 01/10/22 15:05 75 16 102/56 99 01/10/22 14:50 75 16 105/57 95 01/10/22 14:35 67 16 104/61 98 01/10/22 14:20 77 18 102/66 97 01/10/22 14:05 73 16 120/77 97 01/10/22 13:50 96.9 F L 86 16 123/78 96 Intake and Output 01/10/22 01/11/22 01/11/22 22:59 06:59 14:59 Intake Total 500 Output Total 30 150 Balance 470 -150 Intake: IV 500 Output: Urine 30 150 Uretheral (Vargas) 150 Other: Voiding Method Indwelling Catheter - Constitutional General appearance: no acute distress - EENT Eyes: EOMI, PERRLA ENT: hearing grossly normal, normal oropharynx - Neck Neck: no lymphadenopathy Thyroid: bilateral: normal size - Respiratory Respiratory: bilateral: CTA - Cardiovascular Rhythm: regular Heart sounds: normal: S1, S2 - Gastrointestinal abdominal binder in place. Expected postop tenderness. Bowel sounds are markedly diminished - Integumentary Integumentary: normal - Neurologic Neurologic: CNII-XII intact - Musculoskeletal Musculoskeletal: generalized weakness, strength equal bilaterally - Psychiatric Psychiatric: A&O x's 3, appropriate affect Results CBC & Chem 7: 01/11/22 07:59 01/10/22 05:57 Labs: procedure notes, and pathology reports reviewed CT scan - abdomen: report reviewed CT scan - pelvis: report reviewed Assessment and Plan (1) Cancer of cecum Narrative/Plan: this was found on colonoscopy prompted by a new diagnosis of mild anemia, as well as some change in bowel habits. Patient's CT scans did not show any obvious metastatic disease. He is status post laparoscopic robotic-assisted right hemicolectomy which he has tolerated well so far. - We discussed the known pathology, as well as treatment recommendations according to guidelines. He was advised that need for adjuvant therapy will be determined by the final pathologic stage - the patient was advised that given treatment would need to be considered if he had advanced stage ( possible, based on intraoperative findings), and/or brittnee involvement. Systemic adjuvant chemotherapy is indicated, it would be started at least 4 weeks after surgery with the patient has adequately healed up. - Follow-up with patient once final pathology is available Current Visit: Yes Status: Acute Code(s): C18.0 - MALIGNANT NEOPLASM OF CECUM SNOMED Code(s): 161189991 (2) Anemia Narrative/Plan: likely due to blood loss from the tumor site. Check iron studies. Supplement as appropriate Current Visit: Yes Status: Acute Code(s): D64.9 - ANEMIA, UNSPECIFIED SNOMED Code(s): 685917703
[2022-01-12] MEDS: ACETAMINOPHEN TAB 500 MG TAB PO SCH ×3 (00:35→11:51)
[2022-01-12 04:24] VITALS: RESP 16
[2022-01-12] MEDS: SODIUM CHLORIDE 0.9% 1,000 ML IV SCH (05:42)
[2022-01-12] MEDS: LACTATED RINGERS 1,000 ML IV SCH (07:09)
[2022-01-12 08:42] VITALS: BP 106/61; PULSE 81; TEMP 98.5
[2022-01-12] MEDS ORDERED: ATORVASTATIN 80 MG TAB PO SCH (09:00)
[2022-01-12] MEDS: TAMSULOSIN 0.4 MG CAP.ER.24H PO SCH (09:33)
[2022-01-12] MEDS: METOPROLOL SUCCINATE (ER) 25 MG TAB.ER.24H PO SCH (09:33)
[2022-01-12] MEDS: GABAPENTIN 300 MG CAP PO SCH (09:33)
[2022-01-12] MEDS: HEPARIN SODIUM,PORCINE/PF 5,000 UNIT/0.5 ML SYRINGE SQ SCH (09:33)
[2022-01-12] MEDS: ASPIRIN 81 MG PO SCH (09:33)
[2022-01-12] MEDS: ALVIMOPAN 12 MG CAPSULE PO SCH (09:33)
[2022-01-12] MEDS: SIMETHICONE 40 MG/0.6 ML DROPS 2,000 MG/30 ML BOTTLE PO SCH (09:41)
[2022-01-12] MEDS: SODIUM FERRIC GLUCONAT-SUCROSE 125 MG in SODIUM CHLORIDE 0.9% 100 ML IVPB SCH (10:44)
--- NOTE | 2022-01-12 11:45 | P.DS ---
Providers Date of admission: 01/09/22 07:23 Expected date of discharge: 01/12/22 Attending physician: Marixa Keene Consults: 01/10/22 15:00 Consult Physician Routine Consulting Provider: Jeremías Servin Consult Reason/Comments: Medical management Do you want consulting provider notified?: Yes 01/10/22 18:26 Consult Physician Routine Consulting Provider: Cesilia Wilkinson Consult Reason/Comments: Colon cancer Do you want consulting provider notified?: Yes, Notify in am Primary care physician: Jeremías Servin - Discharge Diagnosis(es) (1) Cancer of cecum Patient hospitalized Thursday after her laparoscopic right colectomy. Doing well today. Had a small bowel movement and is passing flatus. Yesterday was bloated but that has resolved. White blood cell count 10, hemoglobin 10.7. Abdomen remains minimally tender at his incision sites. Dressings clean and dry. Patient would like to go home. He is tolerating full liquids. Will discharge. Follow-up as outpatient with Dr. Giles. Gradually advance to low fiber diet as outpatient. Remove dressing on Thursday morning. May shower. Current Visit: Yes Status: Acute Plan - Discharge Summary Discharge Rx Participant: No New Discharge Prescriptions: New Simethicone [Gas-X] 125 mg PO AC-TID PRN #20 capsule PRN Reason: Pain Acetaminophen Tab [Tylenol Tab] 1,000 mg PO Q6HR PRN #30 tablet PRN Reason: Pain Continue Metoprolol Succinate (ER) [Toprol XL] 25 mg PO QAM Atorvastatin [Lipitor] 80 mg PO QAM Aspirin [Children's Aspirin] 81 mg PO DAILY Citalopram Hydrobromide [Citalopram HBr] 20 mg PO QAM Multivit with Calcium,Iron,Min [Women's Multivitamin] 1 each PO DAILY Discharge Medication List Atorvastatin [Lipitor] 80 mg PO QAM 12/04/21 [History] Citalopram Hydrobromide [Citalopram HBr] 20 mg PO QAM 12/04/21 [History] Metoprolol Succinate (ER) [Toprol XL] 25 mg PO QAM 12/04/21 [History] Aspirin [Children's Aspirin] 81 mg PO DAILY 01/07/22 [History] Multivit with Calcium,Iron,Min [Women's Multivitamin] 1 each PO DAILY 01/07/22 [History] Acetaminophen Tab [Tylenol Tab] 1,000 mg PO Q6HR PRN #30 tablet 01/10/22 [Rx] Simethicone [Gas-X] 125 mg PO AC-TID PRN #20 capsule 01/10/22 [Rx] Follow up Appointment(s)/Referral(s): Marixa Keene MD [STAFF PHYSICIAN] - 01/21/22 1:00 pm Patient Instructions/Handouts: *[facility] - Managing Your Pain After Surgery Without Opioids, Colorectal Cancer (GEN), Low Fiber Diet (DC), Abdominal Binder (DC), Laparoscopic Bowel Resection (DC) Activity/Diet/Wound Care/Special Instructions: EXPECT BLOOD IN YOUR FIRST BOWEL MOVEMENT OCCURS FOR 2 DAYS REMOVE DRESSING February Wear abdominal binder for comfort. No lifting over 4 pounds in 4 weeks February 09September shower. No bath tub soaks for two weeks until February 23 Avoid steak, tough meats and seeds such as raspberry seeds. See diverticulitis, low fiber, colectomy diet Use Tylenol and ibuprofen scheduled for the next 24-48 hours for best pain relief. Use ice along incisions for today to prevent swelling. Discharge Disposition: HOME SELF-CARE
[2022-01-12 12:24] LABS: % Iron Saturation 68.68 (15.00-50.00)
[2022-01-12 13:15] LABS: Ferritin 86.9 ng/mL (22.0-322.0)
--- NOTE | 2022-01-12 13:52 | P.PN ---
Subjective Progress Note Date: 01/12/22 Patient is a pleasant 56-year-old male admitted for laparoscopic right hemicolectomy and extensive additional lysis. Patient has an worsening: Cancer which was recently diagnosed after he was evaluated for anemia. Patient had the end-to-end anastomosis clinically doing well didn't pass gas yet walking in the hallways pain is well-controlled. 01/12/2022 Patient is evaluated today, he is ambulating in the room pending discharge. He reports no abdominal pain. He has surgical silver dressing in place, no shadowing noted. Had small BM today, mostly hard stool. He is passing gas, no shortness of breath, no cough, no fever noted. He has been cleared by general surgery for discharge today. Temperature 98.5, heart rate 81, blood pressure 106/61, 97% room air. Cleared medically for discharge. Review of Systems Constitutional: Denied any fatigue denied any fever. Cardio vascular: denied any chest pain, palpitations Gastrointestinal: denied any nausea, vomiting, diarrhea Pulmonary: Denied any shortness of breath cough Neurologic denied any new focal deficits All inpatient medications were reviewed and appropriate changes in these medications as dictated in the interval history and assessment and plan. PHYSICAL EXAMINATION: GENERAL: The patient is alert and oriented x3, not in any acute distress. Well developed, well nourished. HEENT: Pupils are round and equally reacting to light. EOMI. No scleral icterus. No conjunctival pallor. Normocephalic, atraumatic. No pharyngeal erythema. No thyromegaly. CARDIOVASCULAR: S1 and S2 present. No murmurs, rubs, or gallops. PULMONARY: Chest is clear to auscultation, no wheezing or crackles. ABDOMEN: Soft, postsurgical dressing in place, normoactive bowel sounds. No palpable organomegaly. MUSCULOSKELETAL: No joint swelling or deformity. EXTREMITIES: No cyanosis, clubbing, or pedal edema. NEUROLOGICAL: Gross neurological examination did not reveal any focal deficits. SKIN: No rashes. Assessment and plan -Perioperative hypotension improved -Colon cancer status post hemicolectomy on this hospitalization awaiting pathology reports -Hypertension -Hyperlipidemia -Coronary artery disease DVT prophylaxis: As per primary service GI prophylaxis Full Code Cleared medically for discharge, home medications resumed. Patient follows with Dr Servin in the primary care office he is instructed to make follow up appointment after discharge The impression and plan of care has been dictated by Ambar Kimball, Nurse Practitioner as directed. Dr. Louann MD I have performed a history and physical examination and medical decision making of this patient, discussed the same with the dictator, and agree with the dictators assessment and plan as written, documented as a scribe. Based on total visit time, I have performed more than 50% of this visit. Objective - Vital Signs Vital signs: Vital Signs Temp 98.5 F 01/12/22 08:00 Pulse 81 01/12/22 08:00 Resp 16 01/12/22 08:00 BP 106/61 01/12/22 08:00 Pulse Ox 97 01/12/22 08:00 FiO2 Intake & Output 01/11/22 01/12/22 01/12/22 18:59 06:59 18:59 Intake Total 240 240 Output Total 500 Balance -260 240 Intake: Oral 240 240 Output: Urine 500 - Labs CBC & Chem 7: 01/11/22 07:59 01/10/22 05:57 Labs: Abnormal Lab Results - Last 24 Hours (Table) 01/12/22 Range/Units 03:47 % Saturation 68.68 H (15.00-50.00) Transferrin 182.0 L (204.0-354.0) mg/dL Assessment and Plan Time with Patient: Less than 30
== END 2022-01-12 12:50 | disposition home or self-care (01) | DRG 330 ==
LOC: ORWHC2ENDO 06:19 → 4SSUR 07:23
PROVIDERS: ADMIT Surgery Plastic and Reconstructive Surgery; ATTEND Surgery Plastic and Reconstructive Surgery
DX: C18.0 Malignant neoplasm of cecum (principal); C18.2 Malignant neoplasm of ascending colon; K63.5 Polyp of colon; D64.9 Anemia, unspecified; I95.9 Hypotension, unspecified; E66.09 Other obesity due to excess calories; E78.5 Hyperlipidemia, unspecified; K81.1 Chronic cholecystitis; F32.A Depression, unspecified; F41.9 Anxiety disorder, unspecified; K76.89 Other specified diseases of liver; I11.9 Hypertensive heart disease without heart failure; I25.10 Atherosclerotic heart disease of native coronary artery without angina pectoris; I25.2 Old myocardial infarction; K57.30 Diverticulosis of large intestine without perforation or abscess without bleeding; K64.4 Residual hemorrhoidal skin tags; K64.8 Other hemorrhoids; K66.0 Peritoneal adhesions (postprocedural) (postinfection); Z68.32 Body mass index [BMI] 32.0-32.9, adult; Z79.82 Long term (current) use of aspirin; Z79.899 Other long term (current) drug therapy
CPT/HCPCS: 44404; 45385; 64999; 80048; 80053; 82105; 82378; 82728; 83540; 83550; 85025; 86850; 86900; 86901; 88304; 88305; 88309

== ENCOUNTER → 2023-03-06 | Outpatient (CLI) | payer BC ==
--- NOTE | 2023-03-10 09:14 | CT ---
EXAMINATION TYPE: CT ChestAbdPelvis w con DATE OF EXAM: 03/06/2023 COMPARISON: Abdomen and pelvis 12/05/2021 HISTORY: 57-year-old male C18.0 MALIGNANT NEOPLASM OF CECUM, hx of colon cancer, observation for mets TECHNIQUE: Contiguous axial scanning of the chest, abdomen, and pelvis performed with IV Contrast, pa tient injected with 100 mL of Isovue 300. Delayed images through the kidneys were obtained. Coronal/s agittal reconstructions performed. CT DLP: 2371.10 mGycm Automated exposure control for dose reduction was used. FINDINGS: CHEST: Heart normal size without pericardial effusion. Extensive three-vessel coronary artery calcifications are present. 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 No thoracic lymphadenopathy by CT size criteria. Minimal emphysematous change in the upper lungs. No consolidation or pleural effusion. ABDOMEN: Small hiatal hernia. Redemonstrated multiple hepatic cysts, largest measuring 4.0 cm in the inferior caudate has decreased from 5.6 cm, previously. Portal venous system is patent. No biliary ductal dilatation. 1.3 cm gallstone. No abnormal gallbladder distention. Adrenal glands, right kidney, spleen, and pancreas within normal limits. A couple left renal cortical cysts measuring up tor 1.7 cm. No dilated small bowel, free fluid, or free air. Interval right hemicolectomy with ileocolonic anasto mosis at the level of the hepatic flexure. Soft tissue stranding in the right abdominal mesentery likely postoperative change. There is some nod ularity here measuring up to 7 mm, likely some reactive mesenteric nodes. Otherwise, no mesenteric or retroperitoneal adenopathy seen. There is some focal soft tissue stranding in the left anterior abdominal wall subcutaneous fat but sh ould be correlated clinically. Possibly postoperative change or soft tissue bruising. Oral contrast progressed to the proximal sigmoid colon. There is prominent sigmoid diverticulosis. No pericolonic inflammatory change. PELVIS: Bladder is urine distended. Prostate gland 3.9 cm wide normal size. Small pelvic phlebolith. No abnor mal fluid collection in the pelvis or pelvic lymphadenopathy. BONES: Moderate to advanced degenerative disc disease L5-S1. No osseous destructive process. IMPRESSION: 1. STATUS POST RIGHT HEMICOLECTOMY WITH POSTOPERATIVE STRANDING/SCARRING IN THE RIGHT ABDOMINAL MESEN CAHIM. THERE IS ALSO SOME NODULARITY HERE, LIKELY SMALL REACTIVE MESENTERIC NODES MEASURING UP TO 7 MM . SHORT INTERVAL FOLLOW-UP TO ENSURE STABILITY/RESOLUTION. 2. OTHERWISE, NO EVIDENCE FOR METASTATIC DISEASE. 3. INCIDENTAL COLON COPD WITH MINIMAL EMPHYSEMA. EXTENSIVE THREE-VESSEL CORONARY ARTERY CALCIFICATION S. MULTIPLE HEPATIC CYSTS. SMALL HIATAL HERNIA, A 1.3 CM GALLSTONE, AND SIGMOID DIVERTICULOSIS.
== END | disposition home or self-care (01) ==
LOC: RADCTMAIN 13:57
PROVIDERS: ATTEND Surgery Plastic and Reconstructive Surgery
DX: C18.0 Malignant neoplasm of cecum (principal); J43.9 Emphysema, unspecified; I25.10 Atherosclerotic heart disease of native coronary artery without angina pectoris; K76.89 Other specified diseases of liver; K44.9 Diaphragmatic hernia without obstruction or gangrene; K80.20 Calculus of gallbladder without cholecystitis without obstruction; Z98.890 Other specified postprocedural states; Z90.49 Acquired absence of other specified parts of digestive tract
CPT/HCPCS: 71260; 74177; Q9967

== ENCOUNTER 2023-03-18 07:59 | Day surgery (SDC) | payer BC ==
[2023-03-16 09:23] VITALS: BMI 34.0
[~2023-03-18 07:59] MED LIST changes: -Antibiotics per Pharmacy 1 EACH MISC MISCELLANE PRN; +LACTATED RINGERS 1,000 ML IV SCH
--- NOTE | 2023-03-18 08:12 | P.GSHP ---
History of Present Illness H&P Date: 03/18/23 CHIEF COMPLAINT: Colon screen HISTORY OF PRESENT ILLNESS: The patient is a 57-year-old male who presents for colon screen. Lower endoscopy was offered for further evaluation and management. PAST MEDICAL HISTORY: Please see list. PAST SURGICAL HISTORY: Please see list. MEDICATIONS: Please see list. ALLERGIES: Please see list. SOCIAL HISTORY: No illicit drug use FAMILY HISTORY: No reports of Crohn disease or ulcerative colitis. REVIEW OF ORGAN SYSTEMS: CONSTITUTIONAL: No reports of fevers or chills. PHYSICAL EXAM: VITAL SIGNS: Stable GENERAL: Well-developed pleasant in no acute distress. HEENT: No scleral icterus. Extraocular movements grossly intact. Moist buccal mucosa. NECK: Supple without lymphadenopathy. CHEST: Unlabored respirations. Equal bilateral excursions. CARDIOVASCULAR: Regular rate and rhythm. Distal 2+ pulses. ABDOMEN: Soft, nontender, nondistended. MUSCULOSKELETAL: No clubbing, cyanosis, or edema. ASSESSMENT: 1. Colon screen. PLAN: 1. Recommend proceeding with a lower endoscopy Past Medical History Past Medical History: Hyperlipidemia, Hypertension, Myocardial Infarction (ID) Additional Past Medical History / Comment(s): LOW IRON LEVELS Last Myocardial Infarction Date:: 2000 History of Any Multi-Drug Resistant Organisms: None Reported Past Surgical History: Bowel Resection, Heart Catheterization With Stent, Hernia Repair Additional Past Surgical History / Comment(s): HEART CATH -2 STENTS 2000 AND 1 STENT 2003. VASECTOMY. COLONOSCOPY, colon cancer Past Anesthesia/Blood Transfusion Reactions: No Reported Reaction Additional Past Anesthesia/Blood Transfusion Reaction / Comment(s): no blood transfusion Date of Last Stent Placement:: 2000,2003 Past Psychological History: Anxiety Smoking Status: Never smoker Past Alcohol Use History: Occasional Past Drug Use History: None Reported - Past Family History Mother Family Medical History: Cancer, Deep Vein Thrombosis (DVT), Pulmonary Embolus Additional Family Medical History / Comment(s): breast Medications and Allergies Home Medications Medication Instructions Recorded Confirmed Type Atorvastatin [Lipitor] 80 mg PO QAM 12/04/21 03/16/23 History Metoprolol Succinate (ER) [Toprol 25 mg PO QAM 12/04/21 03/16/23 History XL] Aspirin [Children's Aspirin] 81 mg PO DAILY 01/07/22 03/16/23 History Acetaminophen Tab [Tylenol Tab] 1,000 mg PO Q6HR PRN #30 tablet 01/10/22 03/16/23 Rx Allergies Allergy/AdvReac Type Severity Reaction Status Date / Time No Known Allergies Allergy Verified 03/16/23 09:00
[2023-03-18] MEDS ORDERED: LIDOCAINE 1% INJ 10MG/ML (20 ML MDV) ONE (09:05)
[2023-03-18] MEDS ORDERED: PROPOFOL 10 MG/ML 20 ML VIAL IV ONE (09:05)
[2023-03-18 09:26] VITALS: TEMP 97.6
[2023-03-18 09:50] VITALS: BP 110/78; PULSE 89
[2023-03-18 09:51] VITALS: RESP 18
--- NOTE | 2023-03-21 05:19 | P.PCN ---
Date of Procedure: 03/18/23 Description of Procedure: PREOPERATIVE DIAGNOSIS: Personal history colon cancer Status post right hemicolectomy Colon cancer screening POSTOPERATIVE DIAGNOSIS: Status post right hemicolectomy Diverticulosis, severe sigmoid diverticulosis OPERATION: Colonoscopy to the ileocecal valve SURGEON: Marixa Keene MD. ANESTHESIA: MAC. INDICATIONS: The patient is a 57-year-old male who presents for colonoscopy surveillance after colon resection 2021 for colon cancer. Benefits and risks were described and informed consent was obtained. DESCRIPTION OF PROCEDURE: The patient had undergone Sutab prep. The patient had been brought into the operating room and laid in the left lateral decubitus position. After adequate intravenous sedation, the rectum was examined with 2% lidocaine jelly. No external hemorrhoids were encountered. The rectal tone was within normal limits. No lesions were palpated in the rectal vault. An Olympus colonoscope was advanced ileocecal valve. The prep was excellent. Severe sigmoid diverticulosis was encountered. No colonic polyps were found. No evidence of focal colitis was found. Retroflexion of the scope demonstrated grade 2 internal hemorrhoids without active bleeding or inflammation. The colon was desufflated. The patient had tolerated the procedure well. Withdrawal time was over 6 minutes. FINDINGS: Aronchick preparation quality scale 1 (1-5) Internal hemorrhoids, grade 2 External prolapsed hemorrhoids, grade 2 Severe sigmoid diverticulosis No arteriovenous malformations. No adenomatous polyps. No focal colitis. Presence of colon resection, ileal colectomy RECOMMENDATIONS: Lower endoscopy yearly, next 2023, for 5 years until 2026 Plan - Discharge Summary Discharge Rx Participant: No New Discharge Prescriptions: Continue Metoprolol Succinate (ER) [Toprol XL] 25 mg PO QAM Atorvastatin [Lipitor] 80 mg PO QAM Aspirin [Children's Aspirin] 81 mg PO DAILY Acetaminophen Tab [Tylenol] 1,000 mg PO Q6HR PRN #30 tablet PRN Reason: Pain Discharge Medication List Atorvastatin [Lipitor] 80 mg PO QAM 12/04/21 [History] Metoprolol Succinate (ER) [Toprol XL] 25 mg PO QAM 12/04/21 [History] Aspirin [Children's Aspirin] 81 mg PO DAILY 01/07/22 [History] Acetaminophen Tab [Tylenol] 1,000 mg PO Q6HR PRN #30 tablet 01/10/22 [Rx] Follow up Appointment(s)/Referral(s): Marixa Keene MD [STAFF PHYSICIAN] - 04/14/23 2:30 pm Patient Instructions/Handouts: *[facility] - (Anesthesia) Discharge Instructions Outpatient Surgery, Hemorrhoids (ED), Diverticulosis (DC), Diverticulosis Diet (GEN), Colonoscopy (DC) Activity/Diet/Wound Care/Special Instructions: Repeat colonoscopy 1 year2023 Discharge Disposition: HOME SELF-CARE
== END 2023-03-18 10:45 | disposition home or self-care (01) ==
LOC: ORWHC2ENDO 07:59
PROVIDERS: ATTEND Surgery Plastic and Reconstructive Surgery
DX: Z12.11 Encounter for screening for malignant neoplasm of colon (principal); K57.30 Diverticulosis of large intestine without perforation or abscess without bleeding; I10 Essential (primary) hypertension; E78.5 Hyperlipidemia, unspecified; I25.2 Old myocardial infarction; I25.10 Atherosclerotic heart disease of native coronary artery without angina pectoris; E66.01 Morbid (severe) obesity due to excess calories; Z68.32 Body mass index [BMI] 32.0-32.9, adult; Z98.890 Other specified postprocedural states; Z85.038 Personal history of other malignant neoplasm of large intestine; Z90.49 Acquired absence of other specified parts of digestive tract; Z79.82 Long term (current) use of aspirin; Z79.899 Other long term (current) drug therapy
CPT/HCPCS: 45378; J2001; J2704

== ENCOUNTER → 2023-05-29 | Outpatient (CLI) | payer BC ==
--- NOTE | 2023-05-29 15:27 | CT ---
EXAMINATION TYPE: CT abdomen pelvis w con DATE OF EXAM: 05/29/2023 COMPARISON: Prior CT March 06, 2023 HISTORY: hx of MALIGNANT NEOPLASM OF CECUM and emphysema. CT DLP: 2149.3 mGycm, Automated Exposure Control for Dose Reduction was Utilized. CONTRAST: CT scan of the abdomen and pelvis is performed with oral and with IV Contrast, patient injected with 100ml mL of Isovue 300. FINDINGS: LUNG BASES: Coronary artery calcification in the RCA distribution. LIVER/GB: Scattered heterogeneous hypodense masses throughout the liver are redemonstrated. Mass is g rossly stable in size and number from prior 2 CTs favoring benign etiology. There is dependent calcif ied gallstone PANCREAS: No significant abnormality is seen. SPLEEN: No significant abnormality is seen. ADRENALS: No significant abnormality is seen. KIDNEYS:. There are 2 small simple appearing thin-walled cysts scattered throughout the left kidney. BOWEL: Oral contrast reaches level of the rectum. No abnormal small or large bowel dilatation. Surgic al changes from partial proximal colectomy redemonstrated. Diverticula in the sigmoid colon again see n. PROSTATE/SEMINAL VESICLES: No gross abnormality seen. LYMPH NODES: No new greater than 1cm abdominal or pelvic lymph nodes are appreciated. OSSEOUS STRUCTURES: Moderate to severe narrowing with vacuum disc phenomenon at lumbosacral junction redemonstrated. OTHER: Asymmetric tiny fat-containing right inguinal hernia. IMPRESSION: Postsurgical changes redemonstrated. No new Suspicious mass or adenopathy to suggest acti ve neoplastic recurrence.
== END | disposition home or self-care (01) ==
LOC: RADCTMAIN 13:25
PROVIDERS: ATTEND Internal Medicine Hematology & Oncology
DX: C18.0 Malignant neoplasm of cecum (principal); J43.9 Emphysema, unspecified; Z98.890 Other specified postprocedural states
CPT/HCPCS: 74177; Q9967